=== PATIENT | male | born 1965 | race Caucasian/White ===

== ENCOUNTER → 2020-11-27 | Outpatient (CLI) | payer MEDICARE, MEDICAID ==
--- NOTE | 2020-11-27 09:39 | REP ---
INDICATION: MODERATE PERSISTENT ASTHMA, UNCOMPLICATED. COMPARISON: None. TECHNIQUE: PA and lateral FINDINGS: The superior mediastinal structures are midline. The cardiac silhouette is unremarkable in size, shape, and position. The diaphragmatic surfaces of the lungs are regular, and the costophrenic angles are clear. The pulmonary randle are clear. The imaged osseous structures are intact. Bilateral posterior spinal fixators and bilateral multilevel transpedicular screws are noted. IMPRESSION: There is no acute cardiopulmonary disease. <Electronically signed by Joe Negro > 11/27/20 [id number]
== END ==
LOC: M RAD 09:21
DX: J45.40 Moderate persistent asthma, uncomplicated (principal)